=== PATIENT | female | born 1955 ===

== ENCOUNTER 2020-12-19 17:28 | Emergency (ER) | payer BC ==
[~2020-12-19] VITALS: Ht 157.5 cm; Wt 52.3 kg
[2020-12-19 17:35] VITALS: BP 153/73; TEMP 98.4
[2020-12-19 18:31] VITALS: PULSE 99
== END 2020-12-19 18:32 | disposition home or self-care (01) ==
LOC: COL.ER 17:28
DX: M25.511 Pain in right shoulder (principal); Z88.0 Allergy status to penicillin; Z88.2 Allergy status to sulfonamides